=== PATIENT | male | born 1975 | race Caucasian/White ===

== ENCOUNTER 2019-10-19 19:01 | Emergency (ER) | payer OTHER ==
[~2019-10-19] VITALS: Ht 188 cm; Wt 75.0 kg
[2019-10-19 19:11] VITALS: Ht 188 cm; Wt 75.0 kg
[2019-10-19] MEDS ORDERED: ALBUTEROL SULF8.5 GM INH (19:13)
[2019-10-19] MEDS ORDERED: BENADRYL25 MG PO (19:14)
[2019-10-19] MEDS ORDERED: ALEVE220 MG PO (19:14)
--- NOTE | 2019-10-19 19:53 | NUR ---
DR. GALLARDO NOTIFIED AND REVIEWED PT'S BEHAVIOR AND ASSESSMENT RESULTS. PT IS A LOW RISK PER DR. GALLARDO. DR. GALLARDO STATED TO GIVE RESOURCES TO PT AT TIME OF DISCHARGE. NO FURTHER ORDERS AT THIS TIME. RESOURCES REVIEWED WITH PT AND HE VERBALIZED UNDERSTANDING.
[2019-10-19 21:09] VITALS: BP 128/93
== END 2019-10-19 21:09 | disposition home or self-care (01) ==
LOC: D.ER 19:01
DX: F10.10 Alcohol abuse, uncomplicated (principal); I10 Essential (primary) hypertension; J44.9 Chronic obstructive pulmonary disease, unspecified; M19.90 Unspecified osteoarthritis, unspecified site; K21.9 Gastro-esophageal reflux disease without esophagitis; F17.210 Nicotine dependence, cigarettes, uncomplicated